=== PATIENT | male | born 1960 | race Caucasian/White ===

== ENCOUNTER → 2018-03-28 | Outpatient (CLI) | payer OTHER ==
--- NOTE | 2018-03-28 12:03 | RAD ---
Indication: Recent fall TECHNIQUE: Multiple views of the cervical spine comparison: None FINDINGS: The cervical spine is in normal anatomic alignment. Atlantoaxial joint interval is preserved. No compression deformity seen. Facet joints are in normal anatomic alignment with mild multilevel facet arthropathy. Visualized lung apices are clear. Mild multilevel degenerative disc disease is seen. IMPRESSION: 1. No acute radiographic findings. If concern for cervical spine fracture is high, please consider CT of the cervical spine. Electronically signed by: Justus Eldridge DO (03/28/2018 11:59 AM) [id number]
== END | disposition home or self-care (01) ==
LOC: RAD 11:33
DX: M50.30 Other cervical disc degeneration, unspecified cervical region (principal)
CPT/HCPCS: 72040

== ENCOUNTER → 2018-04-08 | Outpatient (CLI) | payer OTHER ==
--- NOTE | 2018-04-08 10:27 | RAD ---
CT of the cervical spine without contrast, 04/08/2018: History: Fall, arm numbness and tingling Noncontrast scans were obtained with multiplanar reconstructions produced. 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 No acute fracture or subluxation is evident. There are moderate anterior and posterior spurs at multiple levels in the mid and lower cervical spine. There are mild to moderate hypertrophic degenerative changes involving multiple facet joints bilaterally. At C2-3 the central spinal canal and neural foramina are well maintained. At C3-4 there is mild broad-based posterior disc bulging. There is moderate posterior marginal spurring which is most prominent laterally, left greater than right. The combination of findings is causing moderate foraminal narrowing on the left and narrowing of the thecal sac which measures 6 mm in AP diameter at the midline. At C4-5 there is mild posterior disc bulging and marginal spurring. The thecal sac measures 8-9 mm in AP diameter at the midline. The neural foramina are well maintained. At C5-6 there is a moderate broad-based disc/osteophyte complex. The posterior disc margin is not clearly defined due to artifacts. The combination of findings is causing moderate central spinal stenosis at that level. At C6-7 there is posterior disc bulging and spurring, not clearly defined due to artifacts. There is a moderate midline posterior spur arising from the posterosuperior corner of the C7 vertebral body. The combination of findings is causing moderate central spinal stenosis and moderate bilateral foraminal narrowing at this level. IMPRESSION: 1. No acute bony abnormality is detected. 2. Moderate multilevel degenerative change with moderate central spinal stenosis at C5-6, C6-7 and C3-4, and foraminal stenosis at several levels as described above. MR scanning may be useful for further evaluation, if clinically indicated. PQRS Compliance Statement: One or more of the following individualized dose reduction techniques were utilized for this examination: 1. Automated exposure control 2. Adjustment of the mA and/or kV according to patient size 3. Use of iterative reconstruction technique PQRS Compliance Statement: One or more of the following individualized dose reduction techniques were utilized for this examination: 1. Automated exposure control 2. Adjustment of the mA and/or kV according to patient size 3. Use of iterative reconstruction technique
== END | disposition home or self-care (01) ==
LOC: CT 07:46
PROVIDERS: ATTEND Registered Nurse
DX: M48.02 Spinal stenosis, cervical region (principal); M50.322 Other cervical disc degeneration at C5-C6 level; W19.XXXA Unspecified fall, initial encounter; Y93.89 Activity, other specified; Y92.89 Other specified places as the place of occurrence of the external cause; Y99.8 Other external cause status
CPT/HCPCS: 72125